=== PATIENT | male | born 1970 | race Two or more races ===

== ENCOUNTER 2020-02-19 17:35 | Inpatient (IN) | payer OTHER ==
[~2020-02-19] VITALS: Ht 167.6 cm; Wt 80.4 kg
[2020-02-19 18:32] VITALS: BP 131/86
--- NOTE | 2020-02-19 19:10 | NUR ---
Received the patient in report.direct admission came from er.admission assessment done.no resp.distress.generalized pain voiced 01/31.aaox3.all the orders carried out.blood drawn for blood culture.oriented to the unit.bed locked an din lowest position.phone and call light within reach.instructed to call for assistance as needed.
[2020-02-19] MEDS ORDERED: ALBUTEROL SULFATE HFA 8GM INHALATION AEROSOL INH PRN (19:30)
[2020-02-19 19:41] LABS: BASOPHILS % 0.2 % (0.0-1.0); HEMATOCRIT 40.5 % (38.2-49.6); HEMOGLOBIN 12.9 g/dL (14.0-18.0); LYMPHOCYTES # (AUTO) 1.4 (1.0-3.2); LYMPHOCYTES % 10.5 % (18.0-39.1); MEAN CORPUSCULAR HEMOGLOBIN 24.3 pg (28-32); MEAN CORPUSCULAR HGB CONC 31.9 g/dL (31-35); MEAN CORPUSCULAR VOLUME 76.4 fL (81-99); MONOCYTES # (AUTO) 0.5 (0.2-0.8); MONOCYTES % 3.6 % (4.4-11.3); NEUTROPHILS % 84.5 % (38.7-80.0); PLATELET COUNT 351 x10e3/uL (140-360)
--- NOTE | 2020-02-19 19:45 | NUR ---
TRIED TO CONTACT .BUT UNSUCCESSFUL.
[2020-02-19 19:47] LABS: INR 0.88; PROTHROMBIN TIME 12.5 seconds (11.9-14.5)
[2020-02-19 19:48] LABS: PARTIAL THROMBOPLASTIN TIME 34.7 seconds (23.8-35.5)
[2020-02-19 19:50] VITALS: BP 131/86
[2020-02-19 19:52] LABS: ALANINE AMINOTRANSFERASE 64 IU/L (0-55); ALBUMIN 2.9 g/dL (3.5-5.0); ALBUMIN/GLOBULIN RATIO 0.7 (0.8-2.0); ALKALINE PHOSPHATASE 75 IU/L (40-150); ANION GAP 17.5 mmol/L (8-16); BLOOD UREA NITROGEN 9 mg/dL (7-26); BUN/CREATININE RATIO 11 (6-25); CARBON DIOXIDE 25 mmol/L (22-29); CHLORIDE 94 mmol/L (98-107); CREATININE, SERUM 0.79 mg/dL (0.72-1.25); EST GLOMERULAR FILTRATION RATE > 60 ML/MIN (60-); GLUCOSE 108 mg/dL (74-118); POTASSIUM 3.5 mmol/L (3.5-5.1); SODIUM 133 mmol/L (136-145)
[2020-02-19 20:00] VITALS: BP 138/85
[2020-02-19 20:03] LABS: CHOL/HDL RATIO 4.3 (3.9-4.7)
--- NOTE | 2020-02-19 20:17 | Diagnostic Imaging Report ---
Examination: Single AP view of the chest. COMPARISON: None. INDICATION: Pneumonia DISCUSSION: Lines/tubes: None. Lungs: Multifocal groundglass airspace opacities Pleura: No pleural effusion or pneumothorax. Heart and mediastinum: The heart and the mediastinum are unremarkable. Bones and soft tissues: No acute bony abnormalities. IMPRESSION: 1. Bilateral multifocal pneumonia Signed by: Dr. Michael Ramey M.D. on 02/19/2020 8:14 PM
[2020-02-19 20:23] LABS: FERRITIN 1730.48 ng/mL (21.81-274.66)
[2020-02-19 20:43] VITALS: BP 138/85
--- NOTE | 2020-02-19 21:10 | NUR ---
CALL PLACED TO .RECEIVED NEW ORDERS.NOTIFIED CONSULTATION WITH DR.HAMER EPPERSON.TELE #11 PLACED.IV TO LEFT AC #20 G PATENT.IV FLUID RUNNING.KEEP MONITOR THE PATIENT.
[2020-02-19] MEDS: CEFTRIAXONE SOD 1 GM/NS 50 ML 50 ML IV SCH (21:18)
[2020-02-19] MEDS: DEXTROSE 5%/0.9% SOD CHL 1,000 ML IV SCH (21:18)
[2020-02-19] MEDS ORDERED: IBUPROFEN 200 MG TAB PO PRN (21:30)
[2020-02-19 21:50] LABS: ANISOCYTOSIS SLIGHT; BAND NEUTROPHILS % (MANUAL) 2 %; BLAST CELLS % MANUAL 1; HYPOCHROMASIA SLIGHT; LYMPHOCYTES % (MANUAL) 9 % (19-48); MONOCYTES % (MANUAL) 3 % (3.4-9.0); NEUTROPHILS % (MANUAL) 79 % (40-74); POIKILOCYTOSIS SLIGHT
[2020-02-19 21:51] LABS: PLATELET ESTIMATE ADEQUATE; PLATELET MORPHOLOGY COMMENT NORMAL; RBC MORPHOLOGY COMMENT NORMAL
--- NOTE | 2020-02-19 22:30 | NUR ---
Call placed to 's office and spoke to Padma regarding consults.
[2020-02-20] VITALS (7 sets, daily range): BP systolic 111–146; BP diastolic 58–84
[2020-02-20] MEDS: GUAIFENESIN/CODEINE 10 ML CUP PO PRN ×2 (00:20→23:28)
[2020-02-20] MEDS ORDERED: B-1100 M1 PO (00:52)
[2020-02-20] MEDS ORDERED: PANTOPRAZOLE SO40 M1 PO (00:52)
[2020-02-20 05:28] LABS: BASOPHILS % 0.2 % (0.0-1.0); HEMOGLOBIN 12.4 g/dL (14.0-18.0); LYMPHOCYTES % 18.4 % (18.0-39.1); MEAN CORPUSCULAR HEMOGLOBIN 24.3 pg (28-32); MEAN CORPUSCULAR VOLUME 78.3 fL (81-99); MONOCYTES # (AUTO) 0.4 (0.2-0.8); MONOCYTES % 3.4 % (4.4-11.3); NEUTROPHILS # (AUTO) 8.4 (2.1-6.9); NEUTROPHILS % 76.3 % (38.7-80.0); PLATELET COUNT 326 x10e3/uL (140-360); RED BLOOD COUNT 5.11 x10e6/uL (4.3-5.7); RED CELL DISTRIBUTION WIDTH 14.3 % (11.7-14.4)
--- NOTE | 2020-02-20 05:30 | NUR ---
PATIENT SLEPT WELL DURING NIGHT.BLOOD WAYNE AND SENT TO THE LAB.PATIENT TOLERATES WELL.
[2020-02-20 05:46] LABS: ALANINE AMINOTRANSFERASE 58 IU/L (0-55); ALBUMIN 2.7 g/dL (3.5-5.0); ALBUMIN/GLOBULIN RATIO 0.7 (0.8-2.0); ALKALINE PHOSPHATASE 55 IU/L (40-150); ANION GAP 14.6 mmol/L (8-16); BLOOD UREA NITROGEN 10 mg/dL (7-26); BUN/CREATININE RATIO 12 (6-25); CALCIUM 8.8 mg/dL (8.4-10.2); CARBON DIOXIDE 29 mmol/L (22-29); CHLORIDE 97 mmol/L (98-107); CREATININE, SERUM 0.84 mg/dL (0.72-1.25); EST GLOMERULAR FILTRATION RATE > 60 ML/MIN (60-); GLUCOSE 116 mg/dL (74-118); POTASSIUM 3.6 mmol/L (3.5-5.1); SODIUM 137 mmol/L (136-145)
[2020-02-20] MEDS: DEXTROSE 5%/0.9% SOD CHL 1,000 ML IV SCH (06:23)
--- NOTE | 2020-02-20 07:00 | NUR ---
BED SIDE SHIFT REPORT GIVEN TO ONCOMING RN.STABLE CONDITION.
[2020-02-20 07:25] LABS: BAND NEUTROPHILS % (MANUAL) 2 %; LYMPHOCYTES % (MANUAL) 23 % (19-48); MONOCYTES % (MANUAL) 2 % (3.4-9.0); NEUTROPHILS % (MANUAL) 71 % (40-74)
[2020-02-20 07:26] LABS: PLATELET ESTIMATE ADEQUATE; PLATELET MORPHOLOGY COMMENT NORMAL; RBC MORPHOLOGY COMMENT NORMAL
[2020-02-20] MEDS: CEFTRIAXONE SOD 1 GM/NS 50 ML 50 ML IV SCH ×2 (08:10→20:50)
[2020-02-20] MEDS: CHLORASEPTIC SPRAY 177 ML BTL MM PRN (09:30)
[2020-02-20] MEDS ORDERED: VANCOMYCIN 1GM/NS 250 ML 250 ML IV ONE (10:00)
[2020-02-20] MEDS: PANTOPRAZOLE 40 MG 10ML VIAL IV SCH (10:25)
[2020-02-20] MEDS: FAMOTIDINE 20 MG/2 ML VIAL IV SCH ×2 (10:25→16:12)
--- NOTE | 2020-02-20 11:41 | NUR ---
CONSULT COVID 19 Fever and cough for 10 days. patient is seen and examined chart reviewed HISTORY OF PRESENT ILLNESS: The patient is a 49-year-old man. He denies any past medical history has been sick for the last 2 weeks or 10 days he saw his physician has been following for the last week or soHe has a history of fever for the past 10 days. He notes some cough and shortness of breath. He has very limited exercise tolerance. He also complains of a sore throat. He has no nausea or vomiting. He went to an outside facility and had a positive test for COVID. his test for covid was positive patient is being admitted is currently laying in bed he said he is feeling slightly better since he came here PAST SURGICAL HISTORY: he denies No prior surgeries. PAST MEDICAL HISTORY: 1. History of gastroesophageal reflux. 2. The patient denies any history of asthma or prior lung disease. 3. The patient denies any prior cardiac history. indication lives at home none ALLERGIES: NO KNOWN DRUG ALLERGIES. FAMILY HISTORY: Family history is noncontributory. REVIEW OF SYSTEMS: The patient has fever. He has no headache. He has sore throat. He reports dyspnea on exertion. He has some cough. He has no chest pain. He has no abdominal pain. He has no nausea or vomiting. He has no leg edema. 14 point system reviewed all negative PHYSICAL EXAMINATION: VITAL SIGNS: The blood pressure is 111/79 and saturation is 100% on 2 L. Pulse is 60 and respiratory rate is 17. HEENT: Shows no facial swelling or erythema. he is not pale or icteric normocephalic CARDIAC: Reveals regular rate and rhythm with normal S1 and S2. LUNGS: Auscultation of lungs reveals rhonchorous breath sounds bilaterally. There is no wheezing. ABDOMEN: Soft and nontender. more son present There is no rebound or guarding. EXTREMITIES: Shows no leg edema or calf tenderness. There is no cyanosis or clubbing. SKIN: Shows no rashes. NEUROLOGICAL: Shows no focal abnormalities. LABORATORY DATA: White blood cell count is 11 and the hemoglobin is 12.4. The platelet count is 326. The BUN to creatinine ratio is 10 to 0.84. The AST is 48 and the ALT is 58. Albumin is 2.7. all A data reviewed chest x-ray reviewed RADIOGRAPHIC DATA: Chest x-ray shows bilateral infiltrates. IMPRESSION: 1. Viral pneumonia and COVID-19 infection.oxygen as needed avoid NSAID avoid steroid will give supplemental oxygen as needed will give supplements zinc as well as vitamin C 2. Superimposed bacterial infection.we will give 5 days of Rocephin azithromycin 3. Gastroesophageal reflux. PLAN: 1. Continue Tylenol for fever.supportive care 2. Judicious use of IV fluids. 3. Rocephin and one dose of vancomycin for superimposed bacterial pneumonia.we will add azithromycin 4. Cough suppressants. 5. Albuterol inhaler. please refer to the orders
--- NOTE | 2020-02-20 12:15 | Consultation ---
DATE OF CONSULTATION: Pulmonary Critical Care Consultation CHIEF COMPLAINT: Fever and cough for 10 days. HISTORY OF PRESENT ILLNESS: The patient is a 49-year-old man. He has a history of fever for the past 10 days. He notes some cough and shortness of breath. He has very limited exercise tolerance. He also complains of a sore throat. He has no nausea or vomiting. He went to an outside facility and had a positive test for COVID. PAST SURGICAL HISTORY: No prior surgeries. PAST MEDICAL HISTORY: 1. History of gastroesophageal reflux. 2. The patient denies any history of asthma or prior lung disease. 3. The patient denies any prior cardiac history. ALLERGIES: NO KNOWN DRUG ALLERGIES. FAMILY HISTORY: Family history is noncontributory. REVIEW OF SYSTEMS: The patient has fever. He has no headache. He has sore throat. He reports dyspnea on exertion. He has some cough. He has no chest pain. He has no abdominal pain. He has no nausea or vomiting. He has no leg edema. PHYSICAL EXAMINATION: VITAL SIGNS: The blood pressure is 111/79 and saturation is 100% on 2 L. Pulse is 60 and respiratory rate is 17. HEENT: Shows no facial swelling or erythema. CARDIAC: Reveals regular rate and rhythm with normal S1 and S2. LUNGS: Auscultation of lungs reveals rhonchorous breath sounds bilaterally. There is no wheezing. ABDOMEN: Soft and nontender. There is no rebound or guarding. EXTREMITIES: Shows no leg edema or calf tenderness. There is no cyanosis or clubbing. SKIN: Shows no rashes. NEUROLOGICAL: Shows no focal abnormalities. LABORATORY DATA: White blood cell count is 11 and the hemoglobin is 12.4. The platelet count is 326. The BUN to creatinine ratio is 10 to 0.84. The AST is 48 and the ALT is 58. Albumin is 2.7. RADIOGRAPHIC DATA: Chest x-ray shows bilateral infiltrates. IMPRESSION: 1. Viral pneumonia and COVID-19 infection. 2. Superimposed bacterial infection. 3. Gastroesophageal reflux. PLAN: 1. Continue Tylenol for fever. 2. Judicious use of IV fluids. 3. Rocephin and one dose of vancomycin for superimposed bacterial pneumonia. 4. Cough suppressants. 5. Albuterol inhaler. Yassine Ellis MD [facility]/NAZIAL /[id number]
--- NOTE | 2020-02-20 16:00 | NUR ---
Received report from previous nurse. Patient is in stable condition.
[2020-02-20] MEDS: ASCORBIC ACID 500 MG TAB PO SCH (16:12)
[2020-02-20] MEDS: THIAMINE HCL 100 MG TAB PO SCH (16:12)
[2020-02-20] MEDS: ZINC SULFATE 50 MG CAP PO SCH (16:13)
--- NOTE | 2020-02-20 19:16 | NUR ---
REPORT GIVEN TO ONCOMING NURSE. PATIENT IS IN STABLE CONDITION. CALL LIGHT WITHIN REACH. BED IN THE LOWEST POSITION.
--- NOTE | 2020-02-20 19:20 | NUR ---
RECEIVED REPORT FROM ONCOMING NURSE.
--- NOTE | 2020-02-20 20:30 | NUR ---
PATIENT IS RESTING COMFORTABLY IN THE BED. BED IS IN LOWEST POSITION AND CALL LIGHT IS WITHIN REACH. COMPLAINS OF THROAT DISCOMFORT. WILL CONTINUE TO MONITOR PATIENT.
[2020-02-20] MEDS ORDERED: ZOLPIDEM TARTRATE 5 MG TAB PO PRN (21:00)
[2020-02-20] MEDS: ACETAMINOPHEN 325 MG TAB PO PRN (23:28)
[2020-02-21] VITALS (8 sets, daily range): BP systolic 123–147; BP diastolic 78–92
--- NOTE | 2020-02-21 02:28 | History and Physical ---
CHIEF COMPLAINT: Coronavirus positive. HISTORY OF PRESENT ILLNESS: A 49-year-old male, who was sent in by his PCP with underlying cough, congestion, and milian virus positive. Apparently, the patient was diagnosed about 10-14 days ago at the PCP's office in which he was quarantine at home, but progressively got worse over the last several days. He reported to [facility] ER. Apparently there, he was doing well, was discharged from the emergency room, but he called his primary care physician, reported that he still cannot breathe and was very short of breath and came in as a direct admission to [facility]. The patient was seen and evaluated at bedside on the medical floor. He is currently on 2 L of nasal cannula. The patient does get hypoxic when the oxygen is removed. His vital signs were stable. He states he is breathing much better now with no complaints. Pulmonary and ID were consulted. REVIEW OF SYSTEMS: Pertinent positives for cough, congestion, fever, shortness of breath. The rest of 14-point review of systems are reviewed with the patient and are negative. ALLERGIES: NO KNOWN DRUG ALLERGIES. HOME MEDICATIONS: Protonix, thiamine. PAST MEDICAL HISTORY: Reports none. PAST SURGICAL HISTORY: None. FAMILY HISTORY: None. 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 No smoking. No drugs. No alcohol. PHYSICAL EXAMINATION: VITAL SIGNS: Temperature is 98.8, pulse 75, respiratory rate 20, blood pressure 146/84, pulse ox 100%, he is on 2 L nasal cannula. GENERAL: In no acute distress, alert and oriented x3. Cooperative on examination. PULMONARY: Clear to auscultation bilaterally. No wheezing, rales, or rhonchi. No crackles appreciated. CARDIOVASCULAR: Positive S1, S2. No murmurs, rubs, or gallops appreciated. ABDOMEN: Soft, nondistended, nontender to palpation. Bowel sounds present. MUSCULOSKELETAL: Strength is 5/5 throughout. No evidence of any muscle deficits on examination. No weakness appreciated. NEUROLOGIC: Cranial nerves 2 through 12 are grossly intact. No evidence of any neurologic deficits on exam. SKIN: Intact. Warm to touch. Good cap refill. PSYCHIATRIC: Normal affect and mood. EXTREMITIES: No edema. Good range of motion throughout. LABORATORY FINDINGS: White count 11, hemoglobin 12.4, hematocrit 40, platelets of 326. Coagulation; PT 12, INR 0.8, APTT 34.7. Chemistry; sodium 137, potassium 3.6, chloride 97, bicarb 29, anion gap of 14, BUN is 10, creatinine is 0.84, calcium is 8.8, ferritin was 1730. LFTs shows a total bilirubin was 0.6, AST 48, ALT 50, alk phos 55. CRP was pending. LDH was 593, albumin 2.7, LDL was 81. TSH is 1.6. Procalcitonin was pending. Serology; coronavirus PCR was detected, found to be positive. Blood cultures, pending. IMAGING DATA: Chest x-ray consistent with bilateral multifocal pneumonia IMPRESSION: 1. Acute respiratory distress secondary to Coronavirus positive. 2. Possible underlying community-acquired pneumonia. 3. Acid reflux. PLAN: At this time, the patient is doing well on 2 L nasal cannula. We will continue with IV antibiotics, blood cultures, ID and Pulmonary consultation. Continue with supplemental oxygen as well as symptomatic treatment. He is on Lovenox for DVT prophylaxis. Discontinue IV fluids. Discussed plan of care with consultants and patient and nursing staff. MD SHERI Mayer/NAZIAL /[id number]
[2020-02-21 05:05] LABS: ANION GAP 14.6 mmol/L (8-16); BLOOD UREA NITROGEN 9 mg/dL (7-26); BUN/CREATININE RATIO 13 (6-25); CALCIUM 8.5 mg/dL (8.4-10.2); CARBON DIOXIDE 26 mmol/L (22-29); CHLORIDE 102 mmol/L (98-107); CREATININE, SERUM 0.72 mg/dL (0.72-1.25); EST GLOMERULAR FILTRATION RATE > 60 ML/MIN (60-); GLUCOSE 88 mg/dL (74-118); POTASSIUM 3.6 mmol/L (3.5-5.1); SODIUM 139 mmol/L (136-145)
[2020-02-21 05:06] LABS: BASOPHILS % 0.3 % (0.0-1.0); EOSINOPHILS % 0.3 % (0.0-6.0); HEMATOCRIT 39.6 % (38.2-49.6); HEMOGLOBIN 12.1 g/dL (14.0-18.0); LYMPHOCYTES # (AUTO) 1.6 (1.0-3.2); LYMPHOCYTES % 22.4 % (18.0-39.1); MEAN CORPUSCULAR HGB CONC 30.6 g/dL (31-35); MEAN CORPUSCULAR VOLUME 78.4 fL (81-99); MONOCYTES # (AUTO) 0.4 (0.2-0.8); MONOCYTES % 5.9 % (4.4-11.3); NEUTROPHILS # (AUTO) 4.8 (2.1-6.9); NEUTROPHILS % 68.1 % (38.7-80.0); PLATELET COUNT 374 x10e3/uL (140-360); RED BLOOD COUNT 5.05 x10e6/uL (4.3-5.7); RED CELL DISTRIBUTION WIDTH 14.3 % (11.7-14.4)
--- NOTE | 2020-02-21 06:38 | NUR ---
PATIENT IS RESTING COMFORTABLY IN THE BED. BED IS IN LOWEST POSITION AND CALL LIGHT IS WITHIN REACH.
[2020-02-21] MEDS: CEFTRIAXONE SOD 1 GM/NS 50 ML 50 ML IV SCH ×2 (09:32→19:59)
[2020-02-21] MEDS: PANTOPRAZOLE 40 MG 10ML VIAL IV SCH (09:40)
[2020-02-21] MEDS: ASCORBIC ACID 500 MG TAB PO SCH ×2 (09:40→16:44)
[2020-02-21] MEDS: FAMOTIDINE 20 MG/2 ML VIAL IV SCH ×2 (09:40→16:44)
[2020-02-21] MEDS: ZINC SULFATE 50 MG CAP PO SCH ×2 (09:40→16:44)
--- NOTE | 2020-02-21 10:15 | NUR ---
CM called and spoke to pt. Discussed need for home oxygen. Pt states he has never used oxygen at home previously. Wants CM to use any company in network with insurance. Choice given for [employer]. Choice letter placed in front of chart. [facility] informed of referral and confirmed they take pt's insurance. Referral faxed to [phone].
[2020-02-21] MEDS: ACETAMINOPHEN 325 MG TAB PO PRN ×2 (11:02→23:26)
[2020-02-21] MEDS: AZITHROMYCIN 250 MG TAB PO SCH (11:02)
[2020-02-21 11:05] LABS: BAND NEUTROPHILS % (MANUAL) 2 %; EOSINOPHILS % (MANUAL) 1 % (0-7); LYMPHOCYTES % (MANUAL) 24 % (19-48); MONOCYTES % (MANUAL) 3 % (3.4-9.0); NEUTROPHILS % (MANUAL) 67 % (40-74); PLATELET ESTIMATE ADEQUATE; PLATELET MORPHOLOGY COMMENT NORMAL; RBC MORPHOLOGY COMMENT NORMAL
--- NOTE | 2020-02-21 12:30 | NUR ---
Home oxygen delivered for patient to use upon discharge.
--- NOTE | 2020-02-21 12:38 | NUR ---
[facility] delivered portable oxygen to hospital. Pt in isolation so oxygen tank was given to TITO Broussard.
--- NOTE | 2020-02-21 16:40 | Progress Note ---
DATE: SUBJECTIVE: The patient feels better, but still has dyspnea with exertion. He still feels very fatigued. He has some fevers. PHYSICAL EXAMINATION: VITAL SIGNS: The patient is afebrile, the blood pressure is 134/80, the saturation is 97%, and the pulse is 73. HEENT: Shows no facial swelling or erythema. CARDIAC: Reveals regular rate and rhythm with normal S1, S2. LUNGS: Auscultation of lungs reveals rhonchorous breath sounds bilaterally. There is no wheezing. ABDOMEN: Soft, nontender. There is no rebound or guarding. EXTREMITIES: Show no leg edema or calf tenderness. There is no cyanosis or clubbing. SKIN: Shows no rashes. NEUROLOGIC: Shows no focal abnormalities. LABORATORY DATA: Electrolytes, BUN and creatinine are within normal limits. White blood cell count is 7.1, hemoglobin is 12.1, and platelet count is 374. IMPRESSION: 1. Viral pneumonia and COVID-19 infection. 2. Superimposed bacterial pneumonia. 3. Gastroesophageal reflux. PLAN: 1. Continue antibiotics. 2. Continue IV fluids. 3. Continue albuterol inhaler. Yassine Ellis MD [facility]/MODL /[id number]
--- NOTE | 2020-02-21 16:40 | Progress Note ---
DATE: 02/21/2020 Medicine Progress Note SUBJECTIVE: The patient reports that he is doing much better, but when he ambulates, he gets very short of breath. PHYSICAL EXAMINATION: VITAL SIGNS: Temperature is 97.9, pulse 73, respiratory rate is 20, blood pressure 134/80, and pulse ox 97% on 2 L nasal cannula. GENERAL: Not in acute distress. Alert and oriented x3. Cooperative on examination. HEENT: Head; normocephalic, atraumatic. Eyes; pupils are equal, round, and reactive to light bilaterally. PULMONARY: Clear to auscultation bilaterally. No wheezing, no rales, no rhonchi. He is on 2 L nasal cannula. CARDIOVASCULAR: Positive S1 and S2. No murmurs, rubs, or gallops appreciated. ABDOMEN: Soft, nondistended, and nontender to palpation. Bowel sounds present. MUSCULOSKELETAL: Strength is 5/5 throughout. No evidence of any muscle deficits on examination. SKIN: Intact. Warm to touch. Good cap refill. PSYCHIATRIC: Normal affect and mood. EXTREMITIES: No edema. Good range of motion throughout. LABORATORY FINDINGS: Show white count 7.1, hemoglobin 12, hematocrit is 39.6, and platelets of 374. PT 12, INR 0.88, and PTT 34.7. Chemistry; sodium 139, potassium 3.6, chloride 102, bicarb 26, anion gap of 14, BUN is 9, creatinine is 0.72, glucose is 88, and calcium is 8.5. Ferritin 1733. LDH 593. MICROBIOLOGY: Blood cultures no growth to date. IMAGING STUDIES: Nothing new. IMPRESSION: 1. Acute respiratory distress secondary to coronavirus positive. 2. Acute hypoxemic distress secondary to #1. 3. Possible underlying community-acquired pneumonia. 4. Acid reflux. PLAN: At this time, continue with IV antibiotics. Blood cultures no growth to date. ID and Pulmonary following. He is still on 2 L nasal cannula. He is very short of breath on ambulation, so he is not ready for discharge at this time. He is on Lovenox for DVT prophylaxis. Oxygen is at bedside. Continue follow with same plan of care. Discontinue IV fluids. Sebastian Stanley MD [facility]/MODL /[id number]
[2020-02-21] MEDS: ENOXAPARIN SOD INJ 40 MG/0.4 ML SYR SC SCH (16:44)
[2020-02-21] MEDS: THIAMINE HCL 100 MG TAB PO SCH (16:44)
--- NOTE | 2020-02-21 19:20 | NUR ---
ONCOMING BEDSIDE SHIFT REPORT RECEIVED FROM DAYSHIFT, ASSUME CARE OF PATIENT, PATIENT AOX3, STABLE, CALL LIGHT WITHIN REACH, OXYGEN THERAPY N PLACE, EXERTIONAL DYSPNEA NOTED DURNG BRP, SAFETY MAINTAINED
--- NOTE | 2020-02-21 23:45 | NUR ---
ROUTINE VITAL, ELEVATED TEMP, PRN TYLENOL PO GIVEN, TOLERATED WELL
[2020-02-22] VITALS (8 sets, daily range): BP systolic 131–162; BP diastolic 83–94
--- NOTE | 2020-02-22 00:05 | NUR ---
PATIENT IS RESTING COMFORTABLY IN THE BED. BED IS IN LOWEST POSITION AND CALL LIGHT IS WITHIN REACH
[2020-02-22 05:13] LABS: BASOPHILS % 0.4 % (0.0-1.0); EOSINOPHILS % 0.5 % (0.0-6.0); HEMATOCRIT 39.8 % (38.2-49.6); HEMOGLOBIN 12.3 g/dL (14.0-18.0); LYMPHOCYTES # (AUTO) 1.6 (1.0-3.2); LYMPHOCYTES % 20.1 % (18.0-39.1); MEAN CORPUSCULAR HEMOGLOBIN 24.5 pg (28-32); MEAN CORPUSCULAR HGB CONC 30.9 g/dL (31-35); MEAN CORPUSCULAR VOLUME 79.3 fL (81-99); MONOCYTES # (AUTO) 0.5 (0.2-0.8); MONOCYTES % 5.5 % (4.4-11.3); NEUTROPHILS # (AUTO) 5.6 (2.1-6.9); NEUTROPHILS % 68.5 % (38.7-80.0); PLATELET COUNT 457 x10e3/uL (140-360); RED BLOOD COUNT 5.02 x10e6/uL (4.3-5.7); RED CELL DISTRIBUTION WIDTH 14.3 % (11.7-14.4)
[2020-02-22 05:25] LABS: ANION GAP 15.4 mmol/L (8-16); BLOOD UREA NITROGEN 10 mg/dL (7-26); BUN/CREATININE RATIO 13 (6-25); CARBON DIOXIDE 29 mmol/L (22-29); CHLORIDE 100 mmol/L (98-107); CREATININE, SERUM 0.76 mg/dL (0.72-1.25); EST GLOMERULAR FILTRATION RATE > 60 ML/MIN (60-); GLUCOSE 86 mg/dL (74-118); POTASSIUM 3.4 mmol/L (3.5-5.1); SODIUM 141 mmol/L (136-145)
--- NOTE | 2020-02-22 07:07 | NUR ---
BEDSIDE SHIFT REPORT GIVEN TO DAYSHIFT RN, PATIENT AOX3, RESTING IN BED, VSS, AM LABS COMPLETED, POTASSIUM LEVEL 3.4 ENDORSED TO DAY[facility] TO NOTIFY MD FOR ORDER FOR REPLACEMENT, CALL LIGHT WITHIN REACH, HOME OXYGEN TANK OF FLOOR PENDING DISCHARGE
[2020-02-22] MEDS: CEFTRIAXONE SOD 1 GM/NS 50 ML 50 ML IV SCH ×2 (08:25→19:18)
[2020-02-22 09:25] LABS: BAND NEUTROPHILS % (MANUAL) 2 %; BLAST CELLS % MANUAL 1; EOSINOPHILS % (MANUAL) 2 % (0-7); LYMPHOCYTES % (MANUAL) 11 % (19-48); MONOCYTES % (MANUAL) 1 % (3.4-9.0); NEUTROPHILS % (MANUAL) 79 % (40-74); PLATELET ESTIMATE ADEQUATE; PLATELET MORPHOLOGY COMMENT NORMAL; RBC MORPHOLOGY COMMENT NORMAL
[2020-02-22] MEDS: ZINC SULFATE 50 MG CAP PO SCH ×2 (09:43→16:48)
[2020-02-22] MEDS: FAMOTIDINE 20 MG/2 ML VIAL IV SCH ×2 (09:43→16:48)
[2020-02-22] MEDS: PANTOPRAZOLE 40 MG 10ML VIAL IV SCH (09:43)
[2020-02-22] MEDS: AZITHROMYCIN 250 MG TAB PO SCH (09:43)
[2020-02-22] MEDS: CHLORASEPTIC SPRAY 177 ML BTL MM PRN ×3 (09:43→22:33)
[2020-02-22] MEDS: ASCORBIC ACID 500 MG TAB PO SCH ×2 (09:43→16:48)
--- NOTE | 2020-02-22 11:33 | Progress Note ---
DATE: SUBJECTIVE: The patient has less fever. He still has some dyspnea on exertion. He has some cough. PHYSICAL EXAMINATION: VITAL SIGNS: The blood pressure is 136/83, saturation is 98% on 3 L. HEENT: No facial swelling or erythema. CARDIAC: Regular rate and rhythm with normal S1 and S2. LUNGS: Auscultation of the lungs shows clear breath sounds bilaterally. There is no wheezing. ABDOMEN: Soft, nontender. There is no rebound or guarding. EXTREMITIES: No leg edema or calf tenderness. There is no cyanosis or clubbing. SKIN: No rashes. NEUROLOGICAL: No focal abnormalities. IMPRESSION: 1. Viral pneumonia and COVID-19 infection. 2. Superimposed bacterial pneumonia. 3. Gastroesophageal reflux. PLAN: 1. Continue current antibiotics. 2. Continue cough suppressants. 3. Wean oxygen. Yassine Ellis MD [facility]/MODL /[id number]
[2020-02-22] MEDS ORDERED: POTASSIUM CHLORIDE 20 MEQ TAB CR PO NR (13:59)
[2020-02-22] MEDS: ENOXAPARIN SOD INJ 40 MG/0.4 ML SYR SC SCH (16:48)
[2020-02-22] MEDS: THIAMINE HCL 100 MG TAB PO SCH (16:48)
[2020-02-22] MEDS ORDERED: POTASSIUM CHLORIDE 20 MEQ TAB CR PO ONE (18:00)
--- NOTE | 2020-02-22 18:09 | NUR ---
patient doing well today. reported to RN that he ambulated to restroom on oxygen by himself. patient encouraged to call for any help he needs. john.
--- NOTE | 2020-02-22 18:14 | Progress Note ---
DATE: 02/22/2020 SUBJECTIVE: The patient is doing much better today. He is not short of breath or hypoxic with ambulation. He still requires oxygen. He is tolerating his diet well with no issues. VITAL SIGNS: VITAL SIGNS: Temperature is 97.5, pulse 107, respirations is 20, blood pressure 144/94, pulse ox 97% on 2 L nasal cannula. General: In no acute distress, alert and oriented x3. Cooperative on examination. HEENT: Head is atraumatic. Eyes, pupils are reactive to light bilaterally. EOMs intact. Throat; no evidence of erythema or exudates in the posterior pharynx. Has poor dentition. NECK: Supple. Good range of motion throughout. PULMONARY: Clear to auscultation bilaterally. No wheezing, rales, or rhonchi. No crackles appreciated. CARDIOVASCULAR: Positive S1, S2. No murmurs, rubs, or gallops. ABDOMEN: Soft, nondistended, and nontender to palpation. Bowel sounds present. MUSCULOSKELETAL: Strength is 5/5 throughout. NEUROLOGIC: Cranial nerves II through XII grossly intact. No evidence of any neurological deficits on exam. SKIN: Intact warm to touch. Good cap refill. PSYCHIATRIC: Normal affect and mood. EXTREMITIES: No edema. Good range of motion throughout. LABORATORY DATA: White count 8, hemoglobin 12, hematocrit 39, platelets of 457,000. Chemistry; sodium 141, potassium 3.4, chloride 100, bicarb 29, anion gap of 15, BUN 10, creatinine is 0.76, glucose is 9. Blood cultures no growth today. IMPRESSION: 1. Acute respiratory distress secondary to coronavirus positive. 2. Acute hypoxemic distress secondary to #1. 3. Possible community-acquired pneumonia. 4. Acid reflux. PLAN: At this time, continue with IV antibiotics for now. Blood culture shows no growth today. Symptomatic treatment. Continue with nasal cannula 2 L. Home O2 has been arranged. The patient is not ready for discharge at this time, he reports he is not comfortable. Continue follow up Pulmonary and ID recommendations. Lovenox for DVT prophylaxis. Encourage ambulation and oral feeds. Once approved, he can be discharged. Sebastian Stanley MD [facility]/MODL /[id number]
[2020-02-22] MEDS: GUAIFENESIN/CODEINE 10 ML CUP PO PRN (22:36)
[2020-02-23] VITALS (8 sets, daily range): BP systolic 133–143; BP diastolic 89–98
[2020-02-23] MEDS: PANTOPRAZOLE 40 MG 10ML VIAL IV SCH (09:02)
[2020-02-23] MEDS: CEFTRIAXONE SOD 1 GM/NS 50 ML 50 ML IV SCH ×2 (09:02→20:19)
[2020-02-23] MEDS: ZINC SULFATE 50 MG CAP PO SCH ×2 (09:02→17:32)
[2020-02-23] MEDS: FAMOTIDINE 20 MG/2 ML VIAL IV SCH ×2 (09:02→17:32)
[2020-02-23] MEDS: AZITHROMYCIN 250 MG TAB PO SCH (09:02)
[2020-02-23] MEDS: ASCORBIC ACID 500 MG TAB PO SCH ×2 (09:02→17:32)
--- NOTE | 2020-02-23 10:02 | Progress Note ---
DATE: SUBJECTIVE: The patient is still has some fatigue, but feels better overall. He has no fevers. PHYSICAL EXAMINATION: VITAL SIGNS: The blood pressure is 141/90 and saturation is 97% on 2 L of oxygen. Pulse is 97. HEENT: No facial swelling or erythema. CARDIAC: Regular rate and rhythm with normal S1, S2. LUNGS: Auscultation of lungs reveals clear breath sounds bilaterally. There is no wheezing. ABDOMEN: Soft, nontender. There is no rebound or guarding. EXTREMITIES: No leg edema or calf tenderness. There is no cyanosis or clubbing. SKIN: No rashes. NEUROLOGICAL: No focal abnormalities. IMPRESSION: 1. Viral pneumonia and coronavirus disease-19 infection. 2. Gastroesophageal reflux. 3. Pneumonia. PLAN: 1. Complete oral antibiotics as an outpatient. 2. Wean oxygen. 3. The patient will need to self quarantine after discharge and return in 2 weeks for repeat COVID testing. MD RODRÍGUEZ Arroyo/CLEMENTINE /[id number]
--- NOTE | 2020-02-23 11:20 | Diagnostic Imaging Report ---
EXAM: CHEST SINGLE (PORTABLE) DATE: 02/23/2020 10:40 AM INDICATION: Multifocal pneumonia COMPARISON: 02/19/2020 FINDINGS: The trachea is midline. Again identified are multifocal airspace opacities present bilaterally with hilar and lower lung zone predominance, grossly similar to the prior examination. There is no evidence for pneumothorax or pleural effusion. The cardiomediastinal silhouette is stable in appearance. No acute osseous abnormality is identified. IMPRESSION: Grossly stable appearing bilateral airspace opacities concerning for a multifocal/atypical infectious process. Signed by: Dr. Deni Love MD on 02/23/2020 11:17 AM
--- NOTE | 2020-02-23 12:27 | Progress Note ---
DATE: SUBJECTIVE: Mr. Singletary is feeling better. He is still little bit hypoxemic. No new complaints. REVIEW OF SYSTEMS: HEENT: Negative. PULMONARY: Negative. CARDIAC: Negative. PHYSICAL EXAMINATION: GENERAL: He is currently alert and oriented. Does not seem to be in acute distress. VITAL SIGNS: Stable, currently afebrile. HEENT: Not icteric. NECK: Supple. CHEST: Clear. COR: S1 and S2. No S3, S4, or murmurs. ABDOMEN: Soft. IMPRESSION: COVID-19, getting better. The patient could be discharged home. Oxygen as needed, vitamin C and zinc supplement. To see me back in 3 weeks or so to check PCR. To stay in self-quarantine until then. Discussed with the patient at length. Answered all his question. MD MILA Guzmán/CLEMENTINE /[id number]
[2020-02-23] MEDS ORDERED: POTASSIUM CHLORIDE 20 MEQ TAB CR PO NR (14:00)
[2020-02-23] MEDS: ENOXAPARIN SOD INJ 40 MG/0.4 ML SYR SC SCH (17:00)
[2020-02-23] MEDS: THIAMINE HCL 100 MG TAB PO SCH (17:32)
[2020-02-24] VITALS: BP 136/89
--- NOTE | 2020-02-24 00:01 | Progress Note ---
DATE: Medicine Progress Note SUBJECTIVE: The patient reports feeling much better today. He is not short of breath on ambulation. He reports he was not comfortable being discharged today, despite he is doing well. He is on nasal cannula. PHYSICAL EXAMINATION: VITAL SIGNS: He is afebrile, normotensive, saturating 99% on 3 L nasal cannula. GENERAL: Not in acute distress. Alert and oriented x3. Cooperative on examination. HEENT: Head; normocephalic, atraumatic. Eyes; pupils are equal, round, and reactive to light bilaterally. Extraocular movements intact bilaterally. PULMONARY: Clear to auscultation bilaterally. No wheezing, no rales, no rhonchi, no crackles appreciated. CARDIOVASCULAR: Positive S1 and S2. No murmurs, rubs, or gallops appreciated. ABDOMEN: Soft, nondistended, and nontender to palpation. Bowel sounds present. MUSCULOSKELETAL: Strength is 5/5 throughout. No evidence of any muscle deficits on examination. SKIN: Intact. Warm to touch. Good cap refill. PSYCHIATRIC: Normal affect and mood. EXTREMITIES: No edema. Good range of motion throughout. LABORATORY DATA: CBC stable. Chemistry stable. MICROBIOLOGY: Blood cultures, no growth. IMPRESSION: 1. Acute respiratory distress secondary to coronavirus positive. 2. Acute hypoxemic distress secondary to acute respiratory distress. 3. Coronavirus positive. 4. Possible coronavirus pneumonia. 5. Acid reflux. PLAN: At this time, continue with antibiotics. Blood cultures were negative. The patient is doing much better. He could be discharged today, but he refused. We have home O2 arranged. I discussed with him, he will be discharged tomorrow. He seems to have agreed and we will monitor him overnight. MD SHERI Mayer/CLEMENTINE /[id number]
--- NOTE | 2020-02-24 00:38 | NUR ---
Report taken from Davey Zamorano.patient is sleeping now.
--- NOTE | 2020-02-24 04:00 | NUR ---
BLOOD WAYNE AND SENT TO THE LAB .PATIENT TOLERATED WELL.
[2020-02-24 04:43] LABS: EOSINOPHILS # (AUTO) 0.1 (0.0-0.4); HEMATOCRIT 40.3 % (38.2-49.6); HEMOGLOBIN 12.5 g/dL (14.0-18.0); LYMPHOCYTES # (AUTO) 1.5 (1.0-3.2); MEAN CORPUSCULAR HEMOGLOBIN 24.4 pg (28-32); MEAN CORPUSCULAR VOLUME 78.7 fL (81-99); MONOCYTES # (AUTO) 0.6 (0.2-0.8); NEUTROPHILS # (AUTO) 6.1 (2.1-6.9); PLATELET COUNT 412 x10e3/uL (140-360); RED BLOOD COUNT 5.12 x10e6/uL (4.3-5.7); RED CELL DISTRIBUTION WIDTH 13.8 % (11.7-14.4)
[2020-02-24 04:44] VITALS: BP 138/94
[2020-02-24 04:46] VITALS: BP_SYST 112; BP_SYST 138; BP_DIAS 68; BP_DIAS 94
[2020-02-24] MEDS: GUAIFENESIN/CODEINE 10 ML CUP PO PRN (04:52)
[2020-02-24 05:02] LABS: BLOOD UREA NITROGEN 9 mg/dL (7-26); BUN/CREATININE RATIO 13 (6-25); CALCIUM 9.3 mg/dL (8.4-10.2); CARBON DIOXIDE 23 mmol/L (22-29); CHLORIDE 101 mmol/L (98-107); EST GLOMERULAR FILTRATION RATE > 60 ML/MIN (60-); GLUCOSE 97 mg/dL (74-118); SODIUM 138 mmol/L (136-145)
--- NOTE | 2020-02-24 06:58 | NUR ---
Bed side shift report given to oncoming Rn.stable condition.
[2020-02-24] MEDS: FAMOTIDINE 20 MG/2 ML VIAL IV SCH (08:48)
[2020-02-24] MEDS: ASCORBIC ACID 500 MG TAB PO SCH (08:48)
[2020-02-24] MEDS: PANTOPRAZOLE 40 MG 10ML VIAL IV SCH (08:48)
[2020-02-24] MEDS: AZITHROMYCIN 250 MG TAB PO SCH (08:48)
[2020-02-24] MEDS: ZINC SULFATE 50 MG CAP PO SCH (08:48)
[2020-02-24] MEDS: CEFTRIAXONE SOD 1 GM/NS 50 ML 50 ML IV SCH (08:48)
[2020-02-24 09:27] VITALS: BP 141/72
[2020-02-24 09:38] VITALS: BP 141/72
--- NOTE | 2020-02-24 12:08 | NUR ---
PATIENT DISCHARGED. IV ACCESS REMOVED, TELEMETRY REMOVED, CLEANSED AND RETURNED. PATIENT VERBALIZED UNDERSTANDING OF DISCHARGE INSTRUCTIONS, FOLLOW UPS NEEDED, AND PRESCRIPTIONS. DENIED ANY QUESTIONS. INSTRUCTED ON USE OF HOME OXYGEN TANK AND VERBALIZED UNDERSTANDING TO CALL [facility] WHEN HE ARRIVES HOME FOR CONCENTRATOR. DISCHARGE INSTRUCTIONS REVIEWED WITH PATIENT'S DAUGHTER VIA TELEPHONE WELL. PATIENT WHEELED TO PERSONAL VEHICLE WITH ALL BELONGINGS IN STABLE CONDITION.
--- NOTE | 2020-02-25 06:53 | Discharge Summary ---
FINAL DISCHARGE DIAGNOSES: 1. Coronavirus positive. 2. Shortness of breath secondary to coronavirus, improved. 3. Probable community-acquired pneumonia. 4. Acid reflux. CONSULTANTS: 1. Pulmonary. 2. Infectious Disease. PHYSICAL EXAMINATION: VITAL SIGNS: Temperature is 97.5, pulse 81, respiratory rate 14, blood pressure 141/72, and pulse ox is 100%. He is on 3 L nasal cannula. LABORATORY DATA: Show white count 8.9, hemoglobin 12.5, hematocrit 40.3, platelets of 412. Coagulation; PT 12, INR 0.8, PTT 34. Chemistry; sodium 138, potassium 4, chloride 101, bicarb 23, anion gap of 15, BUN 9, creatinine is 0.7, calcium is 9.3, total bilirubin was 0.6, AST 48, ALT 58, alkaline phosphatase 55. CRP was found to be 170. Albumin is 2.7. His LDL was 81. TSH is 1.6. SEROLOGY: Coronavirus PCR was found to be positive. MICROBIOLOGY: Blood cultures were no growth. IMAGING STUDIES: Chest x-ray on 02/23/2020, shows a grossly stable appearing bilateral airspace opacities concerning for multifocal atypical infectious process. HOSPITAL COURSE: This is a 49-year-old male who was diagnosed with coronavirus at his PCPs office, but due to worsening symptoms, was sent into the hospital for further evaluation and management. The patient was found to be hypoxic, requiring oxygen on admission. Repeat coronavirus was found to be positive. The patient was admitted in the coronavirus unit, in which ID and Pulmonary were consulted. As per ID, the patient was on IV antibiotics and was discharged on oral antibiotics. The patient improved symptomatically throughout the hospital course. The patient had home O2 arranged prior to being discharged. He is doing well. He is ambulating with no shortness of breath. He is not short of breath at rest. He was evaluated by Pulmonary as well and he cleared the patient for discharge. Chest x-ray noted to show bilateral opacities. All cultures were found to be negative. He has been afebrile for more than 48 hours. He is symptomatically doing well. He is actually eager to being discharged to home. The patient was cleared for discharge by Pulmonary and ID. The patient was educated about home quarantining for a minimum of 10-14 days, wearing a mask as well and avoiding any family members to avoid them rob the virus. He is also educated in getting a repeat coronavirus PCR in about 10 days with his PCPs office. Home O2 was arranged for him to take with him. Otherwise, I discussed with him if he has any worsening shortness of breath, or any concerns, he needs to call 911 to come to the ER for further evaluation. He verbalized understanding. On the day of discharge, vital signs were stable, labs reviewed and stable. The patient is seen and evaluated, and examined thoroughly on the day of discharge. No other complaints. The patient verbalized understanding and agreed to plan of care to follow up accordingly as an outpatient with the primary care physician in 1 week and ID and Pulmonary in 2 weeks' time. MEDICATIONS: See med reconciliation form. DISPOSITION: Home. CONDITION: Stable. DIET: Heart healthy. In the event of worsening symptoms, the patient was advised to come back to the ED for further evaluation. Discharge summary took greater than 35 minutes. MD SHERI Mayer/CLEMENTINE /[id number]
== END 2020-02-24 12:14 | disposition home or self-care (01) | DRG 177 ==
LOC: IMCU 18:19
PROVIDERS: ADMIT Internal Medicine; ATTEND Internal Medicine
DX: U07.1 COVID-19 (principal); J12.89 Other viral pneumonia; J18.9 Pneumonia, unspecified organism; R06.03 Acute respiratory distress; K21.9 Gastro-esophageal reflux disease without esophagitis; R09.02 Hypoxemia
CPT/HCPCS: 36415; 71045; 80048; 80053; 80061; 82728; 83615; 84145; 84443; 85007; 85025; 85027; 85610; 85651; 85730; 86140; 87040; 87635; 93005; J0696; J1650; J3370; J3411; J7042

== ENCOUNTER → 2020-04-13 | Outpatient (CLI) | payer OTHER ==
[~2020-04-13] MED LIST: B-1100 M1 PO; PANTOPRAZOLE SO40 M1 PO
--- NOTE | 2020-04-13 15:23 | Diagnostic Imaging Report ---
X-ray chest PA and lateral views Comparison: 02/23/2020 History: Follow-up from pneumonia Findings: Central airways unremarkable. Heart size normal. Mediastinal silhouettes unremarkable. No pleural effusion. No pneumothorax. No focal lung infiltrates. Visualized skeletal structures unremarkable. Upper abdomen unremarkable. Extrathoracic soft tissues unremarkable. Impression: Unremarkable exam. Interval resolution of pulmonary infiltrates. Signed by: Sheldon Mcdonough MD on 04/13/2020 3:19 PM
== END ==
LOC: RAD 14:52
PROVIDERS: ATTEND Internal Medicine
DX: J18.9 Pneumonia, unspecified organism (principal)
CPT/HCPCS: 71046